=== PATIENT | male | born 1955 | race Caucasian/White ===

== ENCOUNTER 2016-09-22 21:53 | Observation (INO) | payer OTHER ==
[2016-09-23 03:00] LABS: Urine Bilirubin Negative (Negative); Urine Glucose Negative (Negative); Urine Nitrite Negative (Negative)
[2016-09-23 03:09] LABS: Hematocrit 38 % (42-52); Hemoglobin 12.8 g/dl (14.0-18.0); Mean Corpuscular HGB Conc 34 g/dl (31-36); Mean Corpuscular Hemoglobin 31 pg (27-31); Mean Corpuscular Volume 90 fL (80-94); Mean Platelet Volume 7 um3 (7.4-10.4); Red Blood Count 4.19 10^6/ul (4.0-5.4); Red Cell Distribution Width 14 % (10.5-15); White Blood Count 6.8 10^3/ul (3.5-10.8)
[2016-09-23 03:26] LABS: Albumin 4.1 g/dL (3.2-5.2); BUN/Creatinine Ratio 24.5 (8-20); Calcium 9.3 mg/dL (8.6-10.3); EGFR African American 105.6 (>60); EGFR Non-African American 82.1 (>60); Globulin 2.4 g/dL (2-4); Potassium 4.1 mmol/L (3.5-5.0); Total Bilirubin 0.5 mg/dL (0.2-1.0); Total Protein 6.5 g/dL (6.4-8.9)
[2016-09-23] MEDS ORDERED: NS 0.9% 1000 ML* 1,000 ML BOLUS SCH (07:45)
--- NOTE | 2016-09-23 09:58 | ED ---
Lauren Goncalves Rebecca, scribed for Ness Xiao MD on 09/23/16 at 0142 . GI/ HPI - HPI Summary HPI Summary: Pt is a 61 y/o M who presents to ED unaccompanied c/o rectal bleeding. Pt reports that evening at 2100 he had a BM with bloody clots, stating that it "looked like the stuff after a colonoscopy." Sx aggravated and alleviated by nothing. Notes that he had a normal BM earlier in the day, without any blood. Ranks pain as 0/10. Denies abd pain, N/V. Reports that on 09/21/2016 (two days ago) he had a bladder pressure test,(urodynamics, per Dr. Spring) performed at Dr. Patel's office, via the penis and rectum and pt describes that he had a vasovagal episode of near syncope without incident. Procedure was done to see if the bladder can constrict any further. One dose of Cipro was given after procedure. Had a cystoscope on Tuesday (09/20/2016, 3 days ago). Had has gray that was inserted last (September 16, 1 week ago), under Dr. Patel's orders. Is not on any blood thinners. The urine is pt's gray is yellow, not bloody. Pt has a hx of polyps approximately 6 years ago, had a colonoscopy in follow up in Jun [address] Mayorga that showed no acute finding, +diverticulosis. - History of Current Complaint Chief Complaint: EDGIBleed Time Seen by Provider: 09/22/16 23:36 Stated Complaint: BLOOD IN STOOL Hx Obtained From: Patient Onset/Duration: Started Hours Ago - Episode of bloody stool at 2100 Timing: Intermittent - One episode Current Severity: None Pain Intensity: 0 Associated Signs and Symptoms: Positive: Bright Red Blood w/Stool, Blood w/ Stool - Clots of blood, Other: - clots. Negative: Nausea, Vomiting, Abdominal Pain Aggravating Factor(s): Nothing Alleviating Factor(s): Nothing - Allergy/Home Medications Allergies/Adverse Reactions: Allergies Allergy/AdvReac Type Severity Reaction Status Date / Time Penicillins Allergy Hives Verified 09/16/16 07:30 PMH/Surg Hx/FS Hx/Imm Hx Previously Healthy: No - colonic polyps Endocrine/Hematology History: Reports: Autoimmune Disease - Lupus Denies: Hx Anticoagulant Therapy Cardiovascular History: Denies: Hx Hypertension GI History: Reports: Other GI Disorders - polyps Infectious Disease History: Denies: History Other Infectious Disease, Traveled Outside the [place] in Last 30 Days - Family History Known Family History: Positive: Other - bladder cancer - Social History Occupation: Employed Full-time Alcohol Use: None Substance Use Type: Reports: None Smoking Status (MU): Current Some Day Smoker Type: Cigarettes Amount Used/How Often: 3 cig. day Review of Systems Constitutional: Negative Cardiovascular: Negative Respiratory: Negative Negative: Abdominal Pain, Vomiting, Nausea Positive: other - Rectal bleeding (clots in 1 BM), indwelling gray Musculoskeletal: Negative Skin: Negative Neurological: Negative Psychological: Normal All Other Systems Reviewed And Are Negative: Yes Physical Exam - Summary Physical Exam Summary: Rectal exam findings: Evidence of dark blood on the skin of the rectum with no hemorrhoids. Normal prostate. Rama blood found on examination. Pt is not orthostatic Triage Information Reviewed: Yes Vital Signs On Initial Exam: Initial Vitals Temp Pulse Resp BP Pulse Ox 97.4 F 58 18 168/94 97 09/22/16 21:58 09/22/16 21:58 09/22/16 21:58 09/22/16 21:58 09/22/16 21:58 Vital Signs Reviewed: Yes Appearance: Positive: No Pain Distress, Well-Nourished, Ill-Appearing - Mild Skin: Positive: Warm, Skin Color Reflects Adequate Perfusion, Dry Eyes: Positive: Conjunctiva Clear ENT: Positive: Normal ENT inspection Neck: Positive: Supple Respiratory/Lung Sounds: Positive: Clear to Auscultation, Breath Sounds Present , Other - No respiratory distress Cardiovascular: Positive: RRR, Other - Brisk capillary refill, pulses normal. Negative: Murmur Abdomen Description: Positive: Nontender, No Organomegaly, Soft Musculoskeletal: Positive: Strength/ROM Intact. Negative: Edema Left, Edema Right Neurological: Positive: Alert, Oriented to Person Place, Time, Normal Gait, Other - Muscle tone normal. Negative: Facial Droop, Focal Deficit @, Slurred Speech Psychiatric: Positive: Normal Diagnostics - Vital Signs Vital Signs Temp Pulse Resp BP Pulse Ox 09/22/16 23:40 98.5 F 53 18 172/90 100 09/22/16 21:58 97.4 F 58 18 168/94 97 - Laboratory Lab Results: Lab Results 09/23/16 09/23/16 09/23/16 Range/Units 01:49 02:55 02:55 WBC 6.8 (3.5-10.8) 10^3/ul RBC 4.19 (4.0-5.4) 10^6/ul Hgb 12.8 L (14.0-18.0) g/dl Hct 38 L (42-52) % MCV 90 (80-94) fL MCH 31 (27-31) pg MCHC 34 (31-36) g/dl RDW 14 (10.5-15) % Plt Count 222 (150-450) 10^3/ul MPV 7 L (7.4-10.4) um3 Neut % (Auto) 66.6 (38-83) % Lymph % (Auto) 21.7 L (25-47) % Mckinley % (Auto) 8.6 (1-9) % Eos % (Auto) 2.7 (0-6) % Baso % (Auto) 0.4 (0-2) % Absolute Neuts (auto) 4.5 (1.5-7.7) 10^3/ul Absolute Lymphs (auto) 1.5 (1.0-4.8) 10^3/ul Absolute Monos (auto) 0.6 (0-0.8) 10^3/ul Absolute Eos (auto) 0.2 (0-0.6) 10^3/ul Absolute Basos (auto) 0 (0-0.2) 10^3/ul Absolute Nucleated RBC 0 10^3/ul Nucleated RBC % 0 INR (Anticoag Therapy) 1.00 (0.89-1.11) APTT 32.7 (26.0-36.3) seconds Sodium (133-145) mmol/L Potassium (3.5-5.0) mmol/L Chloride (101-111) mmol/L Carbon Dioxide (22-32) mmol/L Anion Gap (2-11) mmol/L BUN (6-24) mg/dL Creatinine (0.67-1.17) mg/dL Est GFR ( Amer) (>60) Est GFR (Non-Af Amer) (>60) BUN/Creatinine Ratio (8-20) Glucose (70-100) mg/dL Calcium (8.6-10.3) mg/dL Total Bilirubin (0.2-1.0) mg/dL AST (13-39) U/L ALT (7-52) U/L Alkaline Phosphatase (34-104) U/L Total Protein (6.4-8.9) g/dL Albumin (3.2-5.2) g/dL Globulin (2-4) g/dL Albumin/Globulin Ratio (1-3) Urine Color Straw Urine Appearance Clear Urine pH 6.0 (5-9) Ur Specific [place] 1.012 (1.010-1.030) Urine Protein Negative (Negative) Urine Ketones Negative (Negative) Urine Blood Negative (Negative) Urine Nitrate Negative (Negative) Urine Bilirubin Negative (Negative) Urine Urobilinogen Negative (Negative) Ur Leukocyte Esterase Negative (Negative) Urine Glucose Negative (Negative) Blood Type Antibody Screen 09/23/16 09/23/16 Range/Units 02:55 02:55 WBC (3.5-10.8) 10^3/ul RBC (4.0-5.4) 10^6/ul Hgb (14.0-18.0) g/dl Hct (42-52) % MCV (80-94) fL MCH (27-31) pg MCHC (31-36) g/dl RDW (10.5-15) % Plt Count (150-450) 10^3/ul MPV (7.4-10.4) um3 Neut % (Auto) (38-83) % Lymph % (Auto) (25-47) % Mckinley % (Auto) (1-9) % Eos % (Auto) (0-6) % Baso % (Auto) (0-2) % Absolute Neuts (auto) (1.5-7.7) 10^3/ul Absolute Lymphs (auto) (1.0-4.8) 10^3/ul Absolute Monos (auto) (0-0.8) 10^3/ul Absolute Eos (auto) (0-0.6) 10^3/ul Absolute Basos (auto) (0-0.2) 10^3/ul Absolute Nucleated RBC 10^3/ul Nucleated RBC % INR (Anticoag Therapy) (0.89-1.11) APTT (26.0-36.3) seconds Sodium 135 (133-145) mmol/L Potassium 4.1 (3.5-5.0) mmol/L Chloride 105 (101-111) mmol/L Carbon Dioxide 24 (22-32) mmol/L Anion Gap 6 (2-11) mmol/L BUN 23 (6-24) mg/dL Creatinine 0.94 (0.67-1.17) mg/dL Est GFR ( Amer) 105.6 (>60) Est GFR (Non-Af Amer) 82.1 (>60) BUN/Creatinine Ratio 24.5 H (8-20) Glucose 101 H (70-100) mg/dL Calcium 9.3 (8.6-10.3) mg/dL Total Bilirubin 0.50 (0.2-1.0) mg/dL AST 15 (13-39) U/L ALT 11 (7-52) U/L Alkaline Phosphatase 65 (34-104) U/L Total Protein 6.5 (6.4-8.9) g/dL Albumin 4.1 (3.2-5.2) g/dL Globulin 2.4 (2-4) g/dL Albumin/Globulin Ratio 1.7 (1-3) Urine Color Urine Appearance Urine pH (5-9) Ur Specific [place] (1.010-1.030) Urine Protein (Negative) Urine Ketones (Negative) Urine Blood (Negative) Urine Nitrate (Negative) Urine Bilirubin (Negative) Urine Urobilinogen (Negative) Ur Leukocyte Esterase (Negative) Urine Glucose (Negative) Blood Type O Positive Antibody Screen Negative Result Diagrams: 09/23/16 02:55 09/23/16 02:55 Lab Statement: Any lab studies that have been ordered have been reviewed, and results considered in the medical decision making process. Re-Evaluation - Re-Evaluation First Eval Re-Evaluation Time: 03:52 Change: Improved Comment: Is not currently experiencing rectal bleeding. Second Eval Re-Evaluation Time: 04:30 - bright red blood per rectum, no abd pain. Change: Worse GIGU Course/Dx - Course Course Of Treatment: Pt is a 61 y/o M who presents to the ED unaccompanied with a CC of one episode of rectal bleeding with clots at 2100. Denies abd pain, N/ V. Is not on any blood thinners. Reports that on 09/21 (2 days ago), he had a bladder pressure test performed via the penis and rectum at Dr. Patel's office. Discussed care of pt with Dr. Goode, who states that the rectal probe used for the bladder pressure test is very small (5F) is soft and flexible, and is not related to the rectal bleeding. Pt's medications reviewed this visit. Allergies noted. UA reveals negative findings. Pt has indwelling gray without gross hematuria. Hgb 12.8. Hct 38. Orthostatics performed at 0530 reveal: laying down (O2 sat: 98%, BP 129/92, HR 57), sitting up (O2 sat: 99%, BP 148/82 , HR 68) and standing up (O2 sat: 96%, BP 122/90, HR 60). Pt was asymptomatic for all 3. Pt will be admitted for observation after discussion with Dr. Mayorga , GI consult. - Diagnoses Differential Diagnoses - Male: Diverticulitis, Colitis, Hemorrhoids, Neoplasm Provider Diagnoses: Rectal bleeding - Physician Notifications Discussed Care Of Patient With: Dr. Spring, who states that the procedure performed uses a very small 5 persian rectal probe and that it is not related to the rectal bleeding. Time Discussed With Above Provider: 05:52 - 0700 Dr. Mayorga, advises admit obs. - Critical Care Time Critical Care Time: 30-74 min Discharge - Discharge Plan Condition: Stable Disposition: ADMITTED TO [facility] Referrals: Mayda Blair MD [Primary Care Provider] - The documentation as recorded by the Lauren sloan Rebecca accurately reflects the service I personally performed and the decisions made by , Ness Xiao MD.
[2016-09-23 10:37] LABS: Hematocrit 38 % (42-52); Hemoglobin 12.8 g/dl (14.0-18.0)
[2016-09-23] MEDS ORDERED: Spiriva Inhaler DEVICE* 1 EACH DEVICE INH ONE (11:00)
[2016-09-23] MEDS: Tiotropium CAP.INH* CAP.INH/18 MCG INH SCH (15:04)
[2016-09-23 16:34] LABS: Hematocrit 41 % (42-52); Hemoglobin 13.5 g/dl (14.0-18.0)
--- NOTE | 2016-09-23 22:17 | HP ---
HISTORY AND PHYSICAL: DATE OF ADMISSION: 09/23/16 PRIMARY CARE PHYSICIAN: Mayda Blair MD CHIEF COMPLAINT: Bright red blood per rectum. HISTORY OF PRESENT ILLNESS: Mr. Ryan is a pleasant 61-year-old man with a past medical history of COPD and recent urinary issues requiring Oshea placement who presented to the hospital with bright red blood per rectum. The patient states he was visiting his mother in the hospital, had a large dinner at the hospital including roast turkey and came back home around 9 p.m. He did not have any nausea, vomiting, or abdominal pain, but suddenly felt a need to move his bowels. He went to the bathroom and passed some blood and clots, but no stool mixed in. He took a picture and sent it to his brother, who recommended he come to the emergency department. Here in the ED again around 3 a.m., he had another episode of blood and clots mixed in with some stool this time. Again, no abdominal pain. He reports feeling some urgency when he asked to go and maybe some gas. He has felt fairly well otherwise. He was seen in the emergency department on 09/16/16 for some blood in the urine. He had some urinary retention at that time and a Oshea was placed. The patient followed up with Dr. Patel in the office and a few days ago, had urodynamics done in the office. During this, he had a syncopal episode which was thought be due to the vasovagal response. The patient did have a small rectal probing at that time; however, between then and now, he had a normal bowel movement. Of note, the patient had a colonoscopy done in June [address] Mayorga that showed sigmoid diverticulosis. The patient states he had a mild chill after the cystoscopy in the office, however. Aside from that, he has had no fever, chest pain, shortness of breath, diarrhea, or constipation. PAST MEDICAL HISTORY: COPD. PAST SURGICAL HISTORY: Appendectomy. HOME MEDICATIONS: Spiriva 1 inhalation daily. FAMILY HISTORY: Significant for father with prostate cancer and twin brother with bladder cancer. SOCIAL HISTORY: The patient is a former smoker, quit 3 years ago after 15-pack - year history. He denies any alcohol or illicit drug use. REVIEW OF SYSTEMS: A 12-point review of systems is negative except for that as noted in the HPI. PHYSICAL EXAMINATION GENERAL: The patient is a pleasant, middle aged male, lying in bed, in no apparent distress. VITAL SIGNS: On admission, temperature 97.4, heart rate of 58, respiratory rate 18, O2 saturation 97% on room air, and blood pressure 168/94. HEENT: Pupils equal, round, and reactive to light and accommodation. Anicteric sclerae. Moist mucous membranes. No cervical adenopathy. LUNGS: Clear to auscultation bilaterally. No wheezes, rales, or rhonchi. CARDIOVASCULAR: Regular rate and rhythm. S1, S2 present. No murmurs, gallops , or rubs. ABDOMEN: Soft, nontender, and nondistended. Bowel sounds positive. EXTREMITIES: No cyanosis, clubbing, or edema. NEUROLOGIC: The patient is alert and oriented x3. No focal neurological deficits. DIAGNOSTIC STUDIES/LAB DATA: White blood cell count of 6.8, hematocrit of 38, and platelets of 222. INR 1.00. Sodium of 135, potassium 4.1, chloride of 105 , carbon dioxide 24, BUN of 23, creatinine 0.94, and glucose of 101. LFTs within normal limits. UA negative. ASSESSMENT AND PLAN: Bright red blood per rectum likely due to possible diverticular bleed in a 61-year-old male with a past medical history of chronic obstructive pulmonary disease, recent urinary retention, and hematuria with Oshea placement. 1. Bright red blood per rectum: It seems like this is most likely a lower GI bleed. The patient has had no nausea, vomiting, or abdominal pain. Seems like it is probably diverticular. I do not think this is necessarily related to the recent urological procedure. The patient's hemoglobin is 12.8, which is down about a 0.5 from his baseline. We will continue to monitor the patient for now and trend his hemoglobin over the course of the day. We will hold off on the formal GI consult for now as there is likely nothing to be done at this point except for monitoring. The patient is not near the level of needing a transfusion. We will keep him on a clear liquid diet for now. 2. Recent hematuria and urinary retention: The patient states he was told the symptoms were due to distended bladder and was found to have a small diverticulum. I will leave the Oshea in place for now. No evidence of infection or bleeding at this time. He will need to follow up with a urologist as an outpatient. 3. Chronic obstructive pulmonary disease: Continue home Spiriva. No wheezing on exam. No evidence of exacerbation. 4. DVT prophylaxis: Ambulate. The patient is a low risk. 5. Code status: The patient is a full code. TIME SPENT: Total time spent on this admission 35 minutes with over half the time spent [id number] with the patient in counseling and coordinating care. CC: Mayda Blair MD* [id number]/[facility] #: [id number] [facility]
--- NOTE | 2016-09-23 22:59 | CONS ---
GASTROENTEROLOGY CONSULT: DATE: CONSULTING PHYSICIANS: Mayda Baltazar. REASON FOR CONSULT: Bright red rectal bleeding beginning 18 hours ago. 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 last night got the urge to have a bowel movement and saw it was a quarter cup of blood. He went promptly to the emergency room and had another such passage there. He was admitted and over the last 8 hours has passed blood twice more. He has not had any dizziness and his vitals have been good though hemoglobin, which was known to be 14.3 just a week ago (unrelated emergency room visit) is now down to 12.8. He has had [address] Mayorga. In 2010, there were two hyperplastic polyps, one small proximal sigmoid colon tubular adenoma removed. 2016 report shows no further polyps, but does document sigmoid diverticulosis. PAST MEDICAL HISTORY: 1. Diverticulosis - no prior symptomatology. 2. Benign prostatic hypertrophy - bladder outlet obstruction and he currently has a catheter in place, placed by Dr Patel 3 days ago. He had a cystoscopy ruling out bladder lesions. Another cystoscopy is planned next week. 3. History of syncope - he had a syncope workup, May 2006 here. He also had a syncopal episode this past week during a urinary test in the Urology office. 4. History of smoking - chest x-ray, July 2014, interpreted as COPD. SOCIAL HISTORY: He is single and has an identical twin brother living [facility]. REVIEW OF SYSTEMS: No history of ME, palpitations, TB, hemoptysis, renal stones , jaundice, abdominal surgery, chronic arthritis, or dermatologic disease. EXAM: He is a generally healthy-appearing, middle-aged man in no distress. He is smiling and cooperative. HEENT exam is unremarkable. He has no adenopathy. Lungs are clear with diminished breath sounds. Heart sounds are regular. The abdomen is mildly overweight with normal bowel sounds, soft and nontender. Rectal is deferred. There is a catheter in place. Extremities show no edema. Neurologic is nonfocal with normal cranial nerves, cognition, gait, movement of all 4 extremities. LABORATORY DATA: Hemoglobin a week ago was 14.3 with a hematocrit 43, MCV 91, platelets 238 and today, hemoglobin is 12.8. Elect differential is normal. BUN a week ago was 25 and today 23. IMPRESSION: Gastrointestinal bleeding in a lower gastrointestinal pattern and the relatively low volume and incremental fall in his BUN, pretty much establishes that this is from the colon and an upper workup need not be considered. Bleeding is so far rather mild and he will be observed without administering a prep as with 2 prior colonoscopies in the last 6 years, it is exceedingly unlikely he harbors any pathology other than diverticulosis. [id number]/[facility] #: [id number] [facility]
[2016-09-24 05:46] LABS: Hematocrit 38 % (42-52); Hemoglobin 12.6 g/dl (14.0-18.0); Mean Corpuscular HGB Conc 33 g/dl (31-36); Mean Corpuscular Hemoglobin 30 pg (27-31); Mean Corpuscular Volume 90 fL (80-94); Mean Platelet Volume 8 um3 (7.4-10.4); Red Blood Count 4.22 10^6/ul (4.0-5.4); Red Cell Distribution Width 14 % (10.5-15); White Blood Count 4.8 10^3/ul (3.5-10.8)
[2016-09-24] MEDS: Tiotropium CAP.INH* CAP.INH/18 MCG INH SCH (07:50)
--- NOTE | 2016-09-24 08:09 | DCNOTE ---
Patient seen this morning. Feels well. No BM overnight, does not feel the urgency to go he had been feeling. No pain. Thought color of blood had been lightening over the day yesterday On exam, RRR, s1 and s2 present, no m/g/r, abd soft, NTND, BS+, no rebound/ guarding, gray in place Hb has remained stable. Symptoms seem to be resolving. No need for further observation here in the hospital. Will write for CBC check early next week if bleeding persists.
[2016-09-24 09:37] VITALS: BP 132/83
--- NOTE | 2016-09-25 07:10 | DS ---
CC: Dr. Blair DISCHARGE SUMMARY: DATE OF ADMISSION: 09/23/16 DATE OF DISCHARGE: 09/24/16 PRIMARY CARE PHYSICIAN: Mayda Blair MD PRINCIPAL DISCHARGE DIAGNOSIS: Bright red blood per rectum, likely due to diverticular bleed. SECONDARY DIAGNOSIS: Chronic obstructive pulmonary disease. DISCHARGE MEDICATION REGIMEN: Spiriva 1 capsule inhaled daily. HISTORY OF PRESENT ILLNESS AND HOSPITAL SUMMARY: Please see my full history and physical for full d etails. Briefly, Mr. Ryan is a 61-year-old male with a past medical history as above as well as recent issues with urinary retention requiring a Oshea placement, who presented to the hospital wit h bright red blood per rectum. The patient was evaluated in the emergency department, continued to h ave a few episodes throughout the day. His hemoglobin remained stable throughout the hospitalizatio n and the episodes seemed to be resolving on the morning of discharge. He tolerated a liquid diet w hile hospitalized and he was instructed to follow up with his PCP as an outpatient. He will be writ ten for a recheck of the CBC early next week, which he was instructed to get done if he continues to have bleeding episodes; however, it did seem like it was nearly resolved by the time of discharge. TIME SPENT: Total time spent on this discharge, 40 minutes. This is just a summary of the hospitalization. Please see the full medical record for further detai ls. [id number]/[facility] #: [id number]
== END 2016-09-24 10:19 | disposition home or self-care (01) ==
LOC: ED 21:53 → MEDTELE 09-23 08:16 → ED 09-23 09:18
PROVIDERS: ADMIT Hospitalist; ATTEND Hospitalist
DX: K62.5 Hemorrhage of anus and rectum (principal); J44.9 Chronic obstructive pulmonary disease, unspecified; F17.210 Nicotine dependence, cigarettes, uncomplicated; Z88.0 Allergy status to penicillin
CPT/HCPCS: 36415; 80053; 81003; 82272; 85014; 85018; 85025; 85610; 85730; 86850; 86900; 86901; 94640; 99291; A9270-GY; G0378

== ENCOUNTER → 2018-02-19 09:36 | Emergency (ER) | payer OTHER ==
--- NOTE | 2018-02-19 10:09 | ED ---
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 The patient rates the pain 1/10 in severity. Symptoms aggravated by nothing. Symptoms alleviated by nothing. Patient reports chills. Patient denies fever, cough, dysuria, hematuria, and increased urinary frequency. - History of Current Complaint Chief Complaint: EDUrogenitalProblems Time Seen by Provider: 02/19/18 09:59 Stated Complaint: POSS UTI Hx Obtained From: Patient Onset/Duration: Started Hours Ago, Atraumatic, Still Present Timing: Constant Severity: Mild Current Severity: None Pain Intensity: 1 Associated Signs and Symptoms: Positive: Chills, Other: - Negative increased urinary frequency. Negative: Fever, Hematuria, Dysuria, Cough Aggravating Factor(s): Nothing Alleviating Factor(s): Nothing - Allergy/Home Medications Allergies/Adverse Reactions: Allergies Allergy/AdvReac Type Severity Reaction Status Date / Time Penicillins Allergy Hives Verified 02/19/18 09:38 PMH/Surg Hx/FS Hx/Imm Hx Previously Healthy: No Endocrine/Hematology History: Denies: Hx Anticoagulant Therapy Cardiovascular History: Denies: Hx Hypertension Respiratory History: Reports: Hx Chronic Obstructive Pulmonary Disease (COPD) GI History: Reports: Other GI Disorders - polyps Sensory History: Reports: Hx Contacts or Glasses Denies: Hx Hearing Aid Opthamlomology History: Reports: Hx Contacts or Glasses Infectious Disease History: No Infectious Disease History: Denies: History Other Infectious Disease, Traveled Outside the [place] in Last 30 Days - Family History Known Family History: Positive: Other - bladder cancer - Social History Occupation: Employed Full-time Lives: With Family Alcohol Use: None Hx Substance Use: No Substance Use Type: Reports: None Hx Tobacco Use: No Smoking Status (MU): Former Smoker Type: Cigarettes Amount Used/How Often: 3 cig. day Review of Systems Positive: Chills. Negative: Fever Negative: Cough Genitourinary: Other - Positive cloudy urine Negative: dysuria, frequency, hematuria All Other Systems Reviewed And Are Negative: Yes Physical Exam - Summary Physical Exam Summary: VITAL SIGNS: Reviewed. GENERAL: Patient is a well-developed and nourished male who is lying comfortable in the stretcher. Patient is not in any acute respiratory distress. HEAD AND FACE: No signs of trauma. No ecchymosis, hematomas or skull depressions. No sinus tenderness. EYES: PERRLA, EOMI x 2, No injected conjunctiva, no nystagmus. EARS: Hearing grossly intact. Ear canals and tympanic membranes are within normal limits. MOUTH: Oropharynx within normal limits. NECK: Supple, trachea is midline, no adenopathy, no JVD, no carotid bruit, no c- spine tenderness, neck with full ROM. CHEST: Symmetric, no tenderness at palpation LUNGS: Clear to auscultation bilaterally. No wheezing or crackles. CVS: Regular rate and rhythm, S1 and S2 present, no murmurs or gallops appreciated. ABDOMEN: Soft, non-tender. No signs of distention. No rebound no guarding, and no masses palpated. Bowel sounds are normal. EXTREMITIES: FROM in all major joints, no edema, no cyanosis or clubbing. NEURO: Alert and oriented x 3. No acute neurological deficits. Speech is normal and follows commands. SKIN: Dry and warm Triage Information Reviewed: Yes Vital Signs On Initial Exam: Initial Vitals Temp Pulse Resp BP Pulse Ox 96.6 F 68 14 165/97 97 02/19/18 09:38 02/19/18 09:38 02/19/18 09:38 02/19/18 09:38 02/19/18 09:38 Vital Signs Reviewed: Yes Diagnostics - Vital Signs Vital Signs Temp Pulse Resp BP Pulse Ox 02/19/18 09:38 96.6 F 68 14 165/97 97 - Laboratory Result Diagrams: 02/19/18 10:04 02/19/18 10:04 Lab Statement: Any lab studies that have been ordered have been reviewed, and results considered in the medical decision making process. 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 Symptoms aggravated by nothing. Symptoms alleviated by nothing. Patient reports chills. Patient denies fever, cough, dysuria, hematuria, and increased urinary frequency. Blood work without any significant abnormality except for glucose of 113. Urinalysis with positive nitrates therefore positive the urinary tract infection. Patient already has the prescription for ciprofloxacin. He will start taking the ciprofloxacin as indicated by Dr. Patel from urology. We will send the urine for cultures. Since the patient is hemodynamically stable alert and oriented 3 he will be discharged home with follow-up with primary care physician and also Dr. Patel. - Diagnoses Differential Diagnoses - Male: Urinary Tract Infection Provider Diagnoses: Acute UTI Discharge - Sign-Out/Discharge Documenting (check all that apply): Patient Departure - Discharge home - Discharge Plan Condition: Stable Disposition: HOME Patient Education Materials: Urinary Tract Infection in Men (ED) Referrals: Mayda Blair MD [Primary Care Provider] - 3 Days Additional Instructions: RETURN TO THE EMERGENCY DEPARTMENT FOR NEW OR WORSENING SYMPTOMS - Attestation Statements Document Initiated by Scribe: Yes Documenting Scribe: Erin Avila Provider For Whom Scribe is Documenting (Include Credential): Pradeep Garduno MD Scribe Attestation: Erin Goncalves, scribed for Pradeep Garduno MD on 02/19/18 at 1051.
[2018-02-19 10:10] LABS: ABS Basophils 0.1 10^3/ul (0-0.2); ABS Eosinophils 0.1 10^3/ul (0-0.6); ABS Lymphocytes 1.2 10^3/ul (1.0-4.8); ABS Monocytes 0.8 10^3/ul (0-0.8); ABS Neutrophils 7.8 10^3/ul (1.5-7.7); ABS Nucleated RBC 0 10^3/ul; Eosinophil % 1.3 % (0-6); Hematocrit 42 % (42-52); Hemoglobin 14.3 g/dl (14.0-18.0); Lymphocyte % 11.9 % (25-47); Mean Corpuscular HGB Conc 34 g/dl (31-36); Mean Corpuscular Hemoglobin 30 pg (27-31); Mean Corpuscular Volume 89 fL (80-94); Nucleated Red Blood Cells % 0; Platelet Count 228 10^3/ul (150-450); Red Blood Count 4.71 10^6/ul (4.00-5.40); Red Cell Distribution Width 14 % (10.5-15)
[2018-02-19 10:32] LABS: EGFR Non-African American 72.8 (>60)
[2018-02-19 10:44] LABS: Urine Appearance Clear; Urine Blood 2+ (Negative); Urine Color Yellow; Urine Ketones Negative (Negative); Urine Protein Negative (Negative); Urine Red Blood Cell Trace(0-2/hpf) (Absent); Urine Specific Gravity 1.006 (1.010-1.030); Urine Urobilinogen Negative (Negative); Urine White Blood Cell 3+(>20/hpf) (Absent)
[2018-02-19 11:39] VITALS: BP 160/93
--- NOTE | 2018-02-21 05:39 | PN ---
Progress Note - Progress Note Date of Service: 02/21/18 Note: urine culture grew Klebsiella pneumonia >100,000. patient already on cipro from urology. will wait for final culture for sensitivity.
--- NOTE | 2018-02-22 06:06 | PN ---
Progress Note - Progress Note Date of Service: 02/19/18 Note: Pt. seen in ER 02/19 and started on Cipro for UTI. Urine culture today is growing >100k klebsiella sensitive to cipro. No change in treatment needed at this time.
== END | disposition home or self-care (01) ==
LOC: ED 09:36
DX: N39.0 Urinary tract infection, site not specified (principal); B96.1 Klebsiella pneumoniae [K. pneumoniae] as the cause of diseases classified elsewhere; J44.9 Chronic obstructive pulmonary disease, unspecified; Z87.891 Personal history of nicotine dependence
CPT/HCPCS: 36415; 80053; 81003; 81015; 83605; 85025; 86140; 87077; 87086; 87186; 99282